=== PATIENT | male | born 1955 | race Caucasian/White ===

== ENCOUNTER 2020-01-17 09:28 | Emergency (ER) | payer MEDICARE, OTHER ==
[2020-01-17 10:26] LABS: ABSOLUTE BASOPHILS # (AUTO) 0.1 10^3/uL (0.0-0.2); ABSOLUTE EOSINOPHILS # (AUTO) 0.1 10^3/uL (0.0-0.6); ABSOLUTE LYMPHOCYTES (AUTO) 1.4 10^3/uL (0.5-4.7); ABSOLUTE MONOCYTES (AUTO) 0.5 10^3/uL (0.1-1.4); ABSOLUTE NEUT (AUTO) 4.8 10^3/uL (1.7-8.2); BASOPHILS % (AUTO) 0.9 % (0-2); EOSINOPHILS % (AUTO) 1.8 % (0-6); HEMATOCRIT 50.1 % (37.9-51.0); HEMOGLOBIN 17.1 g/dL (13.5-17.0); LYMPHOCYTES % (AUTO) 20.8 % (13-45); MEAN CORPUSCULAR HEMOGLOBIN 29.6 pg (27.0-33.4); MEAN CORPUSCULAR HGB CONC 34.1 g/dL (32.0-36.0); MEAN CORPUSCULAR VOLUME 87 fl (80-97); MONOCYTES % (AUTO) 6.7 % (3-13); PLATELET COUNT 112 10^3/uL (150-450); RED BLOOD COUNT 5.78 10^6/uL (4.35-5.55); RED CELL DISTRIBUTION WIDTH 15.3 % (11.5-14.0); SEGMENTED NEUTROPHILS % (AUTO) 69.8 % (42-78); TOTAL CELLS COUNTED % (AUTO) 100 %; WHITE BLOOD COUNT 6.8 10^3/uL (4.0-10.5)
[2020-01-17] MEDS ORDERED: MAG HYDROX/AL HYDROX/SIMETH SUSP 30 ML UDCUP PO ONE ×2 (10:31→11:06)
[2020-01-17] MEDS ORDERED: LIDOCAINE 2% VISCOUS SOLN 15 ML UDCUP PO ONE ×2 (10:31→11:06)
[2020-01-17] MEDS ORDERED: NORMAL SALINE 1000 ML 1,000 ML IV ONE (10:32)
[2020-01-17] MEDS ORDERED: HYDRALAZINE HCL INJ/PF 20 MG/1 ML SDV IV ONE ×3 (10:47→16:53)
--- NOTE | 2020-01-17 10:55 | RADIOLOGY REPORT (SQ) ---
EXAM DESCRIPTION: CHEST 2 VIEWS IMAGES COMPLETED DATE/TIME: 01/17/2020 10:33 am REASON FOR STUDY: cp COMPARISON: None. TECHNIQUE: Frontal and lateral radiographic views of the chest acquired. NUMBER OF VIEWS: Two view. LIMITATIONS: None. FINDINGS: LUNGS AND PLEURA: No pneumothorax. No consolidation or pleural effusion. MEDIASTINUM AND HILAR STRUCTURES: Age-appropriate contour. HEART AND VASCULAR STRUCTURES: Within normal limits. BONES: No acute findings. HARDWARE: None in the chest. OTHER: No other significant finding. IMPRESSION: NO ACUTE FINDINGS. TECHNICAL DOCUMENTATION: JOB ID: [id number] 2010 [employer]- All Rights Reserved Reading location - IP/workstation name: [employer]
[2020-01-17] MEDS ORDERED: MORPHINE SULFATE 10 MG/ML INJ IV ONE ×4 (11:06→15:30)
[2020-01-17] MEDS ORDERED: ONDANSETRON HCL INJ/PF 4 MG/2 ML SDV IV ONE (11:06)
[2020-01-17] MEDS ORDERED: FAMOTIDINE INJ/PF 20 MG/2 ML SDV IV ONE (11:06)
--- NOTE | 2020-01-17 11:08 | ER Document Report ---
Entered by GABE MCLAIN SCRIBE 01/17/20 1023 Acting as scribe for:PAM VILLAGRAN MD ED General - General Chief Complaint: Chest Pain Stated Complaint: CHEST PAIN Time Seen by Provider: 01/17/20 10:15 Primary Care Provider: SANJAY,NO [Primary Care Provider] - Follow up as needed Mode of Arrival: Ambulatory Information source: Patient Notes: This 64 year old male patient presents to the emergency department today with complaints of upper chest pain described as "really really bad heart burn" at 4:00 AM this morning. He has had associated nausea and vomiting since the pain began. He reports he has no history of coronary artery disease and he does not frequently have heart burn. He did not take his morning blood pressure medications due to the nausea and vomiting. - Related Data Allergies/Adverse Reactions: influenza virus vaccine ts [id number] (36 mos,up) [From [employer]] Allergy (Veri fied 01/17/20 10:05) Home Medications: metformin, HCTZ, Amaryl Past Medical History - General Information source: Patient - Social History Smoking Status: Unknown if Ever Smoked Family History: Reviewed & Not Pertinent Patient has homicidal ideation: No Review of Systems - Review of Systems Constitutional: No symptoms reported EENT: No symptoms reported Cardiovascular: See HPI, Chest pain Respiratory: No symptoms reported Gastrointestinal: See HPI, Abdominal pain, Nausea, Vomiting Genitourinary: No symptoms reported Male Genitourinary: No symptoms reported Musculoskeletal: No symptoms reported Skin: No symptoms reported Hematologic/Lymphatic: No symptoms reported Neurological/Psychological: No symptoms reported -: Yes All other systems reviewed and negative Physical Exam - Vital signs Vitals: Temp Pulse Resp BP Pulse Ox 97.4 F 64 20 192/112 H 97 01/17/20 09:37 01/17/20 09:37 01/17/20 09:37 01/17/20 09:37 01/17/20 09:37 - Notes Notes: Physical Exam: General: Alert, appears uncomfortable. HEENT: Normocephalic. Atraumatic. PERRL. Extraocular movements intact. Oropharynx clear. Neck: Supple. Non-tender. Respiratory: No respiratory distress. Clear and equal breath sounds bilaterally. Complains of substernal pain but area is not tender. Cardiovascular: Regular rate and rhythm. Abdominal: Obese. Non-tender. No distension. Normal Bowel Sounds. No right upper quadrant or epigastric tenderness to palpation. Back: No gross abnormalities. Extremities: Moves all four extremities. Upper extremities: Normal inspection. Normal ROM. Lower extremities: Normal inspection. No edema. Normal ROM. Neurological: Normal cognition. AAOx4. Normal speech. Psychological: Normal affect. Normal Mood. Skin: Warm. Dry. Normal color. Course - Re-evaluation Re-evalutation: 01/17/20 11:35 After the first GI cocktail, the patient states that he thinks it made the pain a little bit better but he still seems quite uncomfortable and his blood press ure is quite elevated. I gave him a second GI cocktail with 3 mg morphine IV, and hydralazine 20 mg. His blood pressure did come down briefly, but when I went back to check him again he is still grunting and quite uncomfortable. He continues to say the pain is substernal, he is very vague about whether or not breathing affects it but he states he can feel something when he breathes. He also reports the pain does seem to go into his back some. On reevaluation he has minimal palpation tenderness to the sternum and anterior chest, he has no tenderness to deep palpation in the epigastrium and up into the right upper quadrant. At this time the plan is to give him an additional pain medication, and get a CTA chest to exclude aortic aneurysm as a cause of his discomfort. 01/17/20 12:39 CTA chest does not show any acute abnormalities. Patient continues to be in significant pain, his heart rate is 73 as blood pressure is 160/121. We will get additional pain medication, dose of Lopressor, repeat cardiac enzymes and repeat his EKG. 01/17/20 16:50 The patient's initial troponin was 0.019 which is barely above the undetectable level. His EKG did not show acute changes. Repeat EKG at 1 PM shows sinus rhythm with incomplete right bundle branch block and Q waves in lead III and F. There were no acute changes. A repeat EKG at 430 this afternoon is unchanged from the 1:00 EKG showing the right bundle branch block and normal sinus rhythm in the borderline inferior Q waves. The repeat troponin was finally obtained about 5 hours after the first 1 and it had gone up to 0.360 At this time he is a little uncomfortable but states overall he feels pretty well. That is probably due to the morphine he has been receiving. His blood pressure continues to stay elevated so we are continuing to give him doses of metoprolol and hydralazine. 01/17/20 16:56 I was able to determine he has not taken any of his tadalafil in nearly a month, so he was given 1 sublingual nitroglycerin at 1655. 01/17/20 17:36 I check back with him a little after 5 PM and he stated that after the sublingual nitroglycerin he thought he felt a little better and it was only mildly uncomfortable now. I gave him additional sublingual nitroglycerin about 1720. 01/17/20 17:38 After given second nitroglycerin, I ordered nitroglycerin. I told him that I had started the transfer process to [facility], his came back and stated they wanted to go to [facility]. I called [facility] to start the transfer process , and was told they are on regional diversion, it could be up to 24 hours for non-STEMI, and that they would take the information to get back to me. 01/17/20 17:53 Shortly after I spoke with the [facility] transfer center, [facility] call back with a room assignment. I was just told friendly transport service would be here in 30 minutes for the patient. Advised the patient about the regional diversion and excessively long wait to go to [facility] and he agrees to go to [place]. 01/17/20 18:21 Transport is here for the patient. Blood pressure is 136/86. Heart rate 69, O2 saturations 98% on 2 L nasal cannula. He seems to be feeling better, he is smiling and is happy to be leaving for [place] and definitive treatment. He is stable for transfer. - Vital Signs Vital signs: Temp Pulse Resp BP Pulse Ox 97.4 F 64 20 136/96 H 97 01/17/20 09:37 01/17/20 09:37 01/17/20 18:16 01/17/20 18:16 01/17/20 18:16 - Laboratory Result Diagrams: 01/17/20 09:58 01/17/20 09:58 Laboratory results interpreted by me: 01/17/20 01/17/20 01/17/20 09:58 09:58 09:58 RBC 5.78 H Hgb 17.1 H RDW 15.3 H Plt Count 112 L Sodium 135.2 L Glucose 222 H CK-MB (CK-2) 6.88 H Urine Glucose (UA) Urine Ketones 01/17/20 16:50 RBC Hgb RDW Plt Count Sodium Glucose CK-MB (CK-2) Urine Glucose (UA) >=500 H Urine Ketones TRACE H - Diagnostic Test Radiology reviewed: Reports reviewed - CTA chest did not show any abnormalities other than a 7 mm subpleural nodule on the right. - EKG Interpretation by Me EKG shows normal: Sinus rhythm, Roxie, Intervals, QRS Complexes, ST-T Waves Rate: Normal - 67 Rhythm: NSR Roxie/QRS: RBBB When compared to previous EKG there are: Previous EKG unavailable Critical Care Note - Critical Care Note Total time excluding time spent on procedures (mins): 45 Comments: At least 45 minutes or probably much more was spent evaluating this patient with a very atypical presentation for non-STEMI. Time was spent with the initial evaluation and multiple repeat evaluations. Multiple medications were given and then reevaluated for blood pressure, pulse, and pain. Studies were done to include a CT angios of the chest and searching for an explanation for his pain when his EKG and initial cardiac enzymes were unremarkable. Time was spent repeatedly trying to get a repeat troponin done which was eventually done approximately 5 hours after the initial troponin. It had gone into a strongly positive range, so phone calls were made to affect a transfer of the patient to a interventional cardiology service. After the initial calls were made to [facility] and the patient was accepted, his came back and stated she wanted him to go to [facility]. Phone calls made to [facility] and he was put on a waiting list but was unlikely to get a bed in the next 24 hours. After discussing this with the patient and his spouse they agreed to go to [facility]. Discharge - Discharge Clinical Impression: Non-STEMI (non-ST elevated myocardial infarction) High blood pressure Qualifiers: Hypertension type: essential hypertension Qualified Code(s): I10 - Essential (primary) hypertension Disposition: Tertiary-Other Referrals: LOCALMD,NO [Primary Care Provider] - Follow up as needed I personally performed the services described in the documentation, reviewed and edited the documentation which was dictated to the scribe in my presence, and it accurately records my words and actions.
[2020-01-17 11:11] LABS: ALBUMIN 4.4 g/dL (3.5-5.0); ALKALINE PHOSPHATASE 68 U/L (38-126); ANION GAP 10 (5-19); ASPARTATE AMINO TRANSFERASE 26 U/L (17-59); BILIRUBIN,DIRECT 0.4 mg/dL (0.0-0.4); BILIRUBIN,TOTAL 0.8 mg/dL (0.2-1.3); BLOOD UREA NITROGEN 13 mg/dL (7-20); CALCIUM 9.6 mg/dL (8.4-10.2); CARBON DIOXIDE 25 mmol/L (22-30); CHLORIDE 100 mmol/L (98-107); CREATINE KINASE 162 U/L (55-170); CREATINE KINASE MB 6.88 ng/mL (<4.55); GLUCOSE 222 mg/dL (75-110); POTASSIUM 4.4 mmol/L (3.6-5.0); TOTAL PROTEIN 7.6 g/dL (6.3-8.2); TROPONIN I 0.019 ng/mL
--- NOTE | 2020-01-17 12:20 | RADIOLOGY REPORT (SQ) ---
EXAM DESCRIPTION: CTA CHEST IMAGES COMPLETED DATE/TIME: 01/17/2020 11:59 am REASON FOR STUDY: Substernal chest pain, high blood pressure COMPARISON: Chest x-ray 01/17/2020 TECHNIQUE: CT scan of the chest performed using helical scanning technique with dynamic intravenous contrast injection. Images reviewed with lung, soft tissue and bone windows. Reconstructed coronal and sagittal MPR images reviewed. Additional 3 dimensional post-processing performed to develop Maximal Intensity Projection images (OR P). All images stored on PACS. All CT scanners at this facility use dose modulation, iterative reconstruction, and/or weight based d osing when appropriate to reduce radiation dose to as low as reasonably achievable (ALARA). [facility]: Dose Right [facility]: CareDose [facility]: Dose Right [facility]: Teradose 4D [facility]: Grandis CONTRAST TYPE AND DOSE: contrast/concentration: Isovue mmol/ml; Total Contrast Delivered: 75.0 ml; Total Saline Delivered: 70.0 ml Contrast bolus adequate for pulmonary arteries and aorta. RENAL FUNCTION: BUN 13 creatinine 0.72 RADIATION DOSE: CT Rad equipment meets quality standard of care and radiation dose reduction techniq ues were employed. CTDIvol: 19.8 - 38.8 mGy. DLP: 1415 mGy-cm. . LIMITATIONS: Less than optimal opacification of the pulmonary arteries. FINDINGS: LUNGS AND PLEURA: There is minimal dependent atelectasis in the lower lobes. There is sub solid subpleural 7 mm nodule on the right on image 36. No other significant findings in the lungs. AORTA AND GREAT VESSELS: No aneurysm. No dissection. HEART: No pericardial effusion. No significant coronary artery calcifications. PULMONARY ARTERIES: No central or major pulmonary emboli are seen. HILAR AND MEDIASTINAL STRUCTURES: There are some small nonspecific mediastinal nodes. HARDWARE: None in the chest. UPPER ABDOMEN: No significant findings. Limited exam. THYROID AND OTHER SOFT TISSUES: No masses. No adenopathy. BONES: There are degenerative changes in the lower cervical/ upper thoracic spine 3D MIPS: Confirm above findings. OTHER: No other significant finding. IMPRESSION: Slightly limited study. There is no significant pulmonary embolus. There is no aortic aneurysm or dissection. Degenerative changes in the lower cervical/ upper thoracic spine. COMMENT: Quality ID # [id number]: Final reports with documentation of one or more dose reduction techniques (e.g., Automated exposure control, adjustment of the mA and/or kV according to patient size, use of iterative reconstruction technique) TECHNICAL DOCUMENTATION: JOB ID: [id number] 2010 [employer]- All Rights Reserved Reading location - IP/workstation name: [email or web address]
--- NOTE | 2020-01-17 12:25 | EKG REPORT ---
SEVERITY:- ABNORMAL ECG - SINUS RHYTHM INCOMPLETE RIGHT BUNDLE BRANCH BLOCK : Confirmed by: Jim Holcomb MD 17-Jan-2020 12:24:43
[2020-01-17] MEDS ORDERED: METOPROLOL TARTRATE PF/INJ 5 MG/5 ML SDV IV ONE ×2 (14:21→15:29)
[2020-01-17] MEDS ORDERED: CLOPIDOGREL BISULFATE 300 MG TABLET PO ONE (16:23)
[2020-01-17] MEDS ORDERED: ENOXAPARIN SODIUM INJ 150 MG/1 ML DISP.SYRIN SUBCUT ONE (16:24)
[2020-01-17] MEDS ORDERED: ASPIRIN 81 MG TABLET, CHEWABLE PO ONE (16:25)
[2020-01-17 17:23] LABS: APPEARANCE,URINE CLEAR; BILIRUBIN,URINE NEGATIVE (NEGATIVE); COLOR,URINE YELLOW; GLUCOSE, URINE >=500 mg/dL (NEGATIVE); KETONES,URINE TRACE mg/dL (NEGATIVE); LEUKOCYTE ESTERASE,URINE NEGATIVE (NEGATIVE); NITRITE,URINE NEGATIVE (NEGATIVE); PROTEIN,URINE NEGATIVE (NEGATIVE); URINE SPECIFIC GRAVITY 1.042; UROBILINOGEN,URINE NEGATIVE mg/dL (<2.0)
[2020-01-17] MEDS ORDERED: NITROGLYCERIN 2% OINTMENT 1 GM PACKET TP ONE (17:37)
[2020-01-17 17:39] LABS: URINE AMPHETAMINES SCREEN NEGATIVE; URINE BARBITURATES SCREEN NEGATIVE; URINE BENZODIAZEPINES SCREEN NEGATIVE; URINE COCAINE SCREEN NEGATIVE; URINE MARIJUANA (THC) SCREEN NEGATIVE; URINE METHADONE SCREEN NEGATIVE; URINE PHENCYCLIDINE SCREEN NEGATIVE
--- NOTE | 2020-01-17 18:15 | EKG REPORT ---
SEVERITY:- ABNORMAL ECG - SINUS RHYTHM PROBABLE LEFT ATRIAL ABNORMALITY INCOMPLETE RIGHT BUNDLE BRANCH BLOCK BORDERLINE INFERIOR Q WAVES : Confirmed by: Jim Holcomb MD 17-Jan-2020 18:14:40
--- NOTE | 2020-01-17 18:16 | EKG REPORT ---
SEVERITY:- ABNORMAL ECG - SINUS RHYTHM INCOMPLETE RIGHT BUNDLE BRANCH BLOCK INFERIOR INFARCT, AGE INDETERMINATE : Confirmed by: Jim Holcomb MD 17-Jan-2020 18:15:12
[2020-01-17 18:29] VITALS: BP 136/96
== END 2020-01-17 18:47 | disposition short-term general hospital (02) ==
LOC: ER 09:28
DX: I21.4 Non-ST elevation (NSTEMI) myocardial infarction (principal); I10 Essential (primary) hypertension; I45.10 Unspecified right bundle-branch block; R10.9 Unspecified abdominal pain; R11.2 Nausea with vomiting, unspecified; M47.812 Spondylosis without myelopathy or radiculopathy, cervical region; M47.814 Spondylosis without myelopathy or radiculopathy, thoracic region; Z79.899 Other long term (current) drug therapy; Z79.84 Long term (current) use of oral hypoglycemic drugs; Z88.7 Allergy status to serum and vaccine
CPT/HCPCS: 93005; 96376; 99291; 96372; 96361; 96374; 96375; 36415; 82553; 82550; 83690; 85025; 80053; 81001; 84484; 80307; 71046; 71275; 93010; A9270 ×4; J1650; J0360; J3490 ×2; J2270; J2405; J7030; S0028